=== PATIENT | female | born 1980 | race Caucasian/White ===

== ENCOUNTER → 2018-10-24 | Day surgery (SDC) | payer OTHER | END | disposition home or self-care (01) | LOC: ADM 10-20 14:15 → AMB-ENDOS 07:45 | DX: K62.7 Radiation proctitis (principal) ==

== ENCOUNTER 2019-01-04 08:30 | Outpatient (CLI) | payer OTHER | END 2019-01-04 08:34 | disposition home or self-care (01) | LOC: RX STUDY 08:30 | DX: N82.3 Fistula of vagina to large intestine (principal); R19.4 Change in bowel habit; K62.7 Radiation proctitis ==

== ENCOUNTER → 2019-02-06 | Outpatient (CLI) | payer OTHER | END | disposition home or self-care (01) | LOC: TOM 07:15 | DX: R31.0 Gross hematuria (principal); N39.0 Urinary tract infection, site not specified; N82.0 Vesicovaginal fistula ==

== ENCOUNTER 2019-02-21 10:05 | Outpatient (CLI) | payer OTHER | END 2019-02-21 10:11 | disposition home or self-care (01) | LOC: LAB 10:05 | DX: N82.3 Fistula of vagina to large intestine (principal) ==

== ENCOUNTER → 2019-02-21 | Outpatient (CLI) | payer OTHER | END | disposition home or self-care (01) | LOC: MRI 12:10 | DX: N82.3 Fistula of vagina to large intestine (principal); R19.4 Change in bowel habit; K62.7 Radiation proctitis | CPT/HCPCS: 72197 ==

== ENCOUNTER 2019-03-26 07:45 | Inpatient (IN) | payer OTHER ==
[~2019-03-26] VITALS: Ht 180.3 cm; Wt 117.9 kg
[2019-03-26] MEDS ORDERED: SYNTHROID125 MCG PO (09:31)
[2019-03-26] MEDS ORDERED: LANTUS {1, null} (09:32)
[2019-03-26] MEDS ORDERED: GLIMEPIRIDE4 MG PO (09:32)
[2019-03-26] MEDS ORDERED: ACTOS PO (09:33)
[2019-03-26] MEDS ORDERED: FOLGARD TABLET1 EACH PO (09:34)
[2019-04-02] MEDS ORDERED: ACTOS45 MG PO (11:33)
[2019-04-02] MEDS ORDERED: VITAMIN D350000 UNIT PO (11:37)
== END 2019-04-10 12:25 | disposition home or self-care (01) | DRG 749 ==
LOC: O/R 07:45 → SURH 04-02 07:45 → O/R 04-02 09:25 → SURH 04-02 09:25
PROVIDERS: ADMIT Urology
PROC: 0DTJ0ZZ Resection of Appendix, Open Approach (ICD-10-PCS; 2019-04-02)
PROC: 0TR Urinary System, Replacement (ICD-10-PCS; principal; 2019-04-02 11:30)
DX: N82.0 Vesicovaginal fistula (principal); N30.40 Irradiation cystitis without hematuria; K35.890 Other acute appendicitis without perforation or gangrene; N13.5 Crossing vessel and stricture of ureter without hydronephrosis; N30.20 Other chronic cystitis without hematuria; N32.89 Other specified disorders of bladder; E13.8 Other specified diabetes mellitus with unspecified complications; K62.7 Radiation proctitis